=== PATIENT | male | born 1970 | race African-American/Black ===

== ENCOUNTER 2023-09-02 16:40 | Emergency (ER) | payer OTHER ==
[~2023-09-02] VITALS: Ht 175.3 cm; Wt 63.5 kg
[2023-09-02] MEDS ORDERED: LISI10TA29 PO ×2 (17:47→19:29)
[2023-09-02] MEDS ORDERED: SACU1TAB PO ×2 (17:47→19:29)
[2023-09-02 17:58] LABS: BASOPHILS # (AUTO) 0.1 K/UL (0.0-0.2); BASOPHILS % (AUTO) 1.4 % (0.0-2.0); DIFFERENTIAL COMMENT 1; EOSINOPHILS # (AUTO) 0.1 K/uL (0.0-0.7); EOSINOPHILS % (AUTO) 2.3 % (0.0-7.0); HEMATOCRIT 43.4 % (36.7-47.1); HEMOGLOBIN 14.3 g/dL (12.5-16.3); LYMPHOCYTES # (AUTO) 1.4 K/uL (0.8-4.8); LYMPHOCYTES % (AUTO) 23.4 % (20.5-51.5); MEAN CORPUSCULAR HGB CONC 33 g/dL (32.5-36.3); MEAN CORPUSCULAR VOLUME 97.3 fL (73.0-96.2); MONOCYTES # (AUTO) 0.6 K/uL (0.1-1.30); MONOCYTES % (AUTO) 9.1 % (0.0-11.0); NEUTROPHILS # (AUTO) 3.9 K/uL (1.8-8.9); NEUTROPHILS % (AUTO) 63.8 % (38.5-71.5); PLATELET COUNT (AUTO) 161 K/uL (152-348); RED BLOOD CELL COUNT(AUTO) 4.46 MIL/uL (4.06-5.63); WHITE BLOOD COUNT (AUTO) 6.1 K/uL (3.6-10.2)
[2023-09-02 18:09] LABS: CALCIUM 8.9 mg/dL (8.5-10.1); CARBON DIOXIDE 25 mmol/L (21-32); CHLORIDE 108 mmol/L (98-107); CREATININE 1.7 mg/dL (0.6-1.3); GLUCOSE 116 mg/dL (74-106); POTASSIUM 3.7 mmol/L (3.5-5.1); SODIUM SERUM 143 mmol/L (136-145); UREA NITROGEN, BLOOD 23 mg/dL (7-18)
[2023-09-02 18:22] LABS: NT-PRO BNP 6536 pg/mL (0-125)
[2023-09-02] MEDS ORDERED: FURO-152 PO (19:29)
[2023-09-02] MEDS ORDERED: POTA25TA7 PO (19:29)
[2023-09-02 20:13] VITALS: BP 128/76; O2SAT 97
== END 2023-09-02 20:14 | disposition home or self-care (01) ==
LOC: ER 16:43
DX: I11.0 Hypertensive heart disease with heart failure (principal); I50.9 Heart failure, unspecified; E88.810 Metabolic syndrome; Z79.899 Other long term (current) drug therapy
CPT/HCPCS: 36415; 71045; 83735; 84484; 85025; 93005; A4606; A4663